=== PATIENT | male | born 1965 | race Caucasian/White ===

== ENCOUNTER → 2022-02-24 | Outpatient (CLI) | payer BC ==
--- NOTE | 2022-02-24 21:29 | CONS ---
CONSULTATION DATE OF SERVICE: 02/24/2022 56-year-old gentleman has been evaluated in [facility] for possible obstructive sleep apnea-hypopnea syndrome. HISTORY OF PRESENT ILLNESS SLEEP-WAKE EVALUATION: Patient's usual sleep schedule on weekdays from 10 p.m. to 6:00 am and on weekends from 9/10 pm until 6:00 am. No problems with falling asleep. No TV in bedroom. The patient sleeps in different positions. According to his , he has loud snoring and he wakes up from sleep with episodes of gasping for air and witnessed episodes of stopped breathing. The patient wakes up from sleep 2 times with 2 episodes of nocturia. No unusual movements during the sleep. No history of hypnagogic hallucinations, sleep paralysis or cataplexy. In the morning the patient wakes up tired, feeling sleepiness during the day. [place] Sleepiness Scale increased to 11. Positive history of episodes of irritability. PAST MEDICAL HISTORY: Positive for seasonal allergies. PAST SURGICAL HISTORY: Left biceps rupture 2010. FAMILY HISTORY: Hypertension, heart problems, sleep apnea, diabetes, mental illness. SOCIAL HISTORY: Positive for smoking up to 30 pack years, quit about 13 years ago. Alcohol consumption occasional. REVIEW OF SYSTEMS: Loud snoring, multiple awakenings from sleep, sleepiness during the day. PHYSICAL EXAMINATION: GENERAL: gentleman without distress. BP 132/77, HR 77, RR 16, height 5 feet 9-1/4 inches, weight 194.4 pounds, body mass index 28.4, temperature 97.2, oxygen saturation at room air 94%. Oropharynx: Low position of soft palate, Mallampati 3. Neck 16 inches in circumference. Neck: Supple, no JVD. Thyroid is not palpable. LUNGS: Clear to percussion and to auscultation. Good air exchange. No wheezing or rhonchi. HEART: S1, S2 regular. No murmurs, gallops, or rubs. ABDOMEN: Soft and nontender. Bowel sounds are present. No organomegaly appreciated. EXTREMITIES: No clubbing or cyanosis. GATE MORTISER OPERATOR: Awake, alert, and oriented X3. Cranial nerves 2 to 7 intact. There is no fasciculation or atrophy. noted. No focal deficits observed. IMPRESSION: 1. Loud snoring, awakenings from sleep with gasping for air and stopped breathing during sleep according to family. Low position of soft palate, Mallampati 3, sleepiness. [place] Sleepiness Scale is 11, obstructive sleep apnea-hypopnea syndrome. 2. Seasonal allergies. 3. History of asthma in childhood. 4. Status post surgical treatment of left biceps rupture in 2010. 5. History of smoking for 30 pack/years; quit. PLAN: 1. Home sleep apnea test to confirm obstructive sleep apnea-hypopnea syndrome. 2. CPAP/BiPAP titration if sleep study confirms obstructive sleep apnea-hypopnea syndrome. 3. Preferable position during sleep on the side. 4. No driving if patient feels any sleepiness. 5. I will see patient for follow up visit to explain results of testing and following plan. Thank you very much for referring this patient for consultation. Sincerely, Ash Friedman MD, PhD, FAASM Diplomat of [employer] Sleep Medicine Board of [place] [employer] Machine Sweeper Brush Maker of [facility] [place] MMODL / LITTLE: [id number] /
== END ==
LOC: SLEEP 15:32
PROVIDERS: ATTEND Internal Medicine
DX: G47.33 Obstructive sleep apnea (adult) (pediatric) (principal); J45.909 Unspecified asthma, uncomplicated; Z98.890 Other specified postprocedural states; Z87.891 Personal history of nicotine dependence
CPT/HCPCS: 99211

== ENCOUNTER → 2023-12-21 | Outpatient (CLI) | payer OTHER ==
[2023-12-21 11:17] VITALS: BP 138/87; PULSE 70; RESP 16; TEMP 98.5
--- NOTE | 2023-12-21 12:21 | P.PN ---
Subjective DATE: 12/21/2023 FOLLOW UP VISIT. Patient with obstructive sleep apnea hypopnea syndrome return to sleep center for follow-up visit. Information from previous visit have been reviewed. Patient is using PAP equipment every night for the whole night, getting PAP supplies in time. The patient does not have significant problems with the mask, PAP unit and humidification. [place] sleepiness scale is 7, which is in normal range. I checked information from PAP unit. PAP unit pressure 7-16, average 15.1 cm H2O. Usage is 100% for more then 4 hours, average 5.7 hours per night. Leak is 4 l/m, which is in acceptable range. Apnea Hypopnea Index is 7.8, which is slightly improved comparing with previous visit when I increased maximal pressure to 16 cm of water. MEDICATIONS:1. Advil Cold 1 to 2 tablets during the day as needed During physical exam: GENERAL: A pleasant patient without any distress. VITAL SIGNS: Please see below. HEENT: PERRLA, EOMI.low position of soft palate, Mallapati 3. NECK: Supple. No JVD. LUNGS: Clear to percussion and to auscultation. Good air exchange. No wheezing or rhonchi. HEART: S1, S2 regular. ABDOMEN: Soft and nontender.[] EXTREMITIES: No clubbing or cyanosis. JIG AND FIXTURE MAKER: Awake, alert, and oriented x3. No focal deficit. I increased range of the pressure in CPAP unit to the level 7-17.4 cm of water. Impressions: 1. Obstructive sleep apnea-hypopnea syndrome. Patient demonstrated great compliance with treatment, benefiting from treatment. 2. Seasonal allergy. 3. History of asthma in childhood. 4. Status post surgical treatment for rupture of left biceps in the past. Plan: 1. Continue using PAP equipment every night for the whole night. 2. To change air filter at least 1-2 times per month. 3. PAP unit should stay lower then position of the head. 4. Advised patient to remove all remaining water from humidifier canister daily and make it dry after each usage. Refill canister with fresh distilled water before each usage. 5. Sleep hygiene with regular time in bed for at least 8 hours. 6. Precautions related to driving. No driving if feel any sleepiness. 7. I will maintain prescription for PAP supplies including mask, tube, filters. 8. Watching weight. 9. Follow up visit in 6 months or earlier if patient has any problems. Thank you very much for allowing me to participate in the management of your patient. Ash Friedman MD, PhD, FAASM. Diplomat of [employer], Sleep Medicine Board by [employer] Production Leader of [facility] [place] Objective - Vital Signs Vital signs: Vital Signs Temp 98.5 F 12/21/23 11:02 Pulse 70 12/21/23 11:02 Resp 16 12/21/23 11:02 BP 138/87 12/21/23 11:02 Pulse Ox 97 12/21/23 11:02 FiO2 Intake & Output 12/20/23 12/21/23 12/21/23 18:59 06:59 18:59 Weight 87.543 kg
== END | disposition home or self-care (01) ==
LOC: 3 N SLEEP 10:39
PROVIDERS: ATTEND Internal Medicine
DX: G47.33 Obstructive sleep apnea (adult) (pediatric) (principal); J45.909 Unspecified asthma, uncomplicated; Z98.890 Other specified postprocedural states
CPT/HCPCS: 99212

== ENCOUNTER → 2024-07-26 | Outpatient (CLI) | payer OTHER ==
[2024-07-26 17:36] VITALS: BP 143/84; PULSE 60; RESP 16; TEMP 98.3
--- NOTE | 2024-07-26 17:51 | P.PROGSL ---
Subjective DATE: 07/26/2024 FOLLOW UP VISIT. Patient with obstructive sleep apnea hypopnea syndrome return to sleep center for follow-up visit. Information from previous visit have been reviewed. Patient is using PAP equipment every night for the whole night, getting PAP supplies in time. The patient does not have significant problems with the mask, PAP unit and humidification. [place] sleepiness scale is 7, which is normal. I checked information from PAP unit. PAP unit pressure 7-17.4, average 15.9 cm H2O. Usage is 80% for more then 4 hours, average for hours per night. Leak is 25 l/m, which is in acceptable range. Apnea Hypopnea Index is 6.9, which is slightly increased, but better than during previous visit. MEDICATIONS have been reviewed, please see below. During physical exam: GENERAL: A pleasant patient without any distress. VITAL SIGNS: Please see below, weight is 196 lbs. HEENT: PERRLA, EOMI.low position of soft palate, Mallapati 3. NECK: Supple. No JVD. LUNGS: Clear to percussion and to auscultation. Good air exchange. No wheezing or rhonchi. HEART: S1, S2 regular. ABDOMEN: Soft and nontender.[] EXTREMITIES: No clubbing or cyanosis. LABORATORY WORKER: Awake, alert, and oriented x3. No focal deficit. Impressions: 1. Obstructive sleep apnea-hypopnea syndrome. Patient demonstrated good compliance with treatment, benefiting from treatment. 2. History of asthma in childhood. 3. Seasonal allergy. 4. Status post surgical treatment for ruptured left biceps in the past. 5. Overweight, BMI 29.2. Patient will try AirFit F40 facemask. Plan: 1. Continue using PAP equipment every night for the whole night. 2. Sleep hygiene with regular time in bed for at least 7.5-8 hours 3. PAP unit should stay lower then position of the head. 4. Advised patient to remove all remaining water from humidifier canister daily and make it dry after each usage. Refill canister with fresh distilled water before each usage. 5. Watching and losing weight. 6. Precautions related to driving. No driving if feel any sleepiness. 7. I will maintain prescription for PAP supplies including mask, tube, filters. 8. Follow up visit in 4 months or earlier if patient has any problems. Thank you very much for allowing me to participate in the management of your patient. Ash Stefadu, MD, PhD, FAASM. Diplomat of [employer], Sleep Medicine Board by [employer] Human Resources Benefits Coordinator of [employer] [facility] [place] Objective - Vital Signs Vital Signs: Vital Signs Temp 98.3 F 07/26/24 17:35 Pulse 60 07/26/24 17:35 Resp 16 07/26/24 17:35 BP 143/84 07/26/24 17:35 Pulse Ox 97 07/26/24 17:35 FiO2 Intake & Output 07/25/24 07/26/24 07/26/24 18:59 06:59 18:59 Weight 88.904 kg
== END ==
LOC: 3 N SLEEP 16:37
PROVIDERS: ATTEND Internal Medicine
DX: G47.33 Obstructive sleep apnea (adult) (pediatric) (principal); E66.3 Overweight; J30.2 Other seasonal allergic rhinitis; Z98.890 Other specified postprocedural states; Z86.59 Personal history of other mental and behavioral disorders; Z68.29 Body mass index [BMI] 29.0-29.9, adult; Z99.89 Dependence on other enabling machines and devices; Z87.09 Personal history of other diseases of the respiratory system
CPT/HCPCS: 99212